=== PATIENT | male | born 1955 | race Caucasian/White ===

== ENCOUNTER → 2016-09-10 | Outpatient (CLI) | payer OTHER | END | disposition home or self-care (01) | LOC: CVU 08:41 | PROVIDERS: ATTEND Surgery Vascular Surgery | DX: I65.23 Occlusion and stenosis of bilateral carotid arteries (principal); I10 Essential (primary) hypertension | CPT/HCPCS: 93880 ==

== ENCOUNTER → 2016-09-17 | Outpatient (CLI) | payer OTHER ==
[~2016-09-17] MED LIST: REGADENOSON 0.4 MG/5 ML SYRINGE ONE
== END | disposition home or self-care (01) ==
LOC: CFH 07:04
PROVIDERS: ATTEND Family Medicine
DX: Z01.810 Encounter for preprocedural cardiovascular examination (principal); I08.3 Combined rheumatic disorders of mitral, aortic and tricuspid valves; R94.31 Abnormal electrocardiogram [ECG] [EKG]
CPT/HCPCS: 78452; 93017; 93306; A9502; J2785

== ENCOUNTER → 2017-02-22 | Outpatient (CLI) | payer OTHER ==
[~2017-02-22] MED LIST changes: +AMLO5TAB2 PO; +ASCO500C2 PO; +ATOR10TA9 PO; +BENA40TA2 PO; +MAGN84TA6 PO; +OMEP20TA62 PO; +POTA99TA2 PO; -REGADENOSON 0.4 MG/5 ML SYRINGE ONE
[2017-02-22 16:10] LABS: HEMATOCRIT 51.3 % (39.2-51.8); HEMOGLOBIN 17.4 g/dL (13.7-18.0); WHITE BLOOD COUNT 8.4 x10^3/uL (3.4-10)
[2017-02-22 16:21] LABS: ASPARTATE AMINO TRANSFERASE 19 U/L (15-37); BLOOD UREA NITROGEN 16 mg/dL (7-18)
== END | disposition home or self-care (01) ==
LOC: STAR 14:46
PROVIDERS: ATTEND Orthopaedic Surgery
DX: Z01.818 Encounter for other preprocedural examination (principal); M17.12 Unilateral primary osteoarthritis, left knee; M81.0 Age-related osteoporosis without current pathological fracture
CPT/HCPCS: 36415; 80053; 81003; 85025; 87081; 93005

== ENCOUNTER 2017-02-28 06:12 | Inpatient (IN) | payer OTHER ==
[~2017-02-28] VITALS: Ht 188 cm; Wt 115.0 kg
[2017-02-28] MEDS ORDERED: LACTATED RINGERS 1,000 ML IV SCH (07:17)
[2017-02-28] MEDS ORDERED: FLU VACC QS2017-18 (36MOS+) UP/PF 0.5 ML IM-VACC ONE (07:30)
[2017-02-28] MEDS ORDERED: MIDAZOLAM 1 MG/ML, 2ML ONE (07:43)
[2017-02-28] MEDS ORDERED: FENTANYL PF 100 MCG/2ML ONE ×2 (07:44→09:12)
[2017-02-28] MEDS ORDERED: PROPOFOL 10 MG/ML, 20ML ONE ×3 (07:44)
[2017-02-28] MEDS ORDERED: CEFAZOLIN 1,000 MG ONE ×2 (07:44)
[2017-02-28] MEDS ORDERED: ONDANSETRON 2MG/ML, 2ML ONE (07:44)
[2017-02-28] MEDS ORDERED: LABETALOL 5MG/ML, 20ML IV PRN (08:00)
[2017-02-28] MEDS ORDERED: HYDROmorphone 1 MG/ML, 1ML IV PRN ×2 (08:00→11:30)
[2017-02-28] MEDS ORDERED: ACETAMINOPHEN 325 MG TABLET PO PRN (08:00)
[2017-02-28] MEDS ORDERED: hydrALAzine 20 MG/ML, 1ML IV PRN (08:00)
[2017-02-28] MEDS ORDERED: EPHEDRINE 50 MG/ML, 1ML IVPush PRN (08:00)
[2017-02-28] MEDS ORDERED: FENTANYL PF 100 MCG/2ML IV PRN (08:00)
[2017-02-28] MEDS ORDERED: TRANEXAMIC ACID 100 MG/ML, 10ML ONE (08:00)
[2017-02-28] MEDS ORDERED: ALBUTEROL SULFATE 2.5 MG/3 ML NPPB PRN (08:00)
[2017-02-28] MEDS ORDERED: PROMETHAZINE 25 MG/ML, 1ML IV PRN (08:00)
[2017-02-28] MEDS ORDERED: MEPERIDINE/PF 25MG/0.5ML IVPush PRN (08:00)
[2017-02-28] MEDS ORDERED: ONDANSETRON 2MG/ML, 2ML IVPush PRN (08:00)
[2017-02-28] MEDS ORDERED: METOPROLOL 1 MG/ML, 5ML IV PRN (08:00)
[2017-02-28] MEDS ORDERED: KETOROLAC 60 MG/2 ML ONE (08:00)
[2017-02-28] MEDS ORDERED: OXYcodone 5 MG/5 ML ORAL.SOL UDC PO PRN (08:00)
[2017-02-28] MEDS ORDERED: ROPIvacaine/PF 0.2%, 20 ML ONE (08:01)
[2017-02-28] MEDS ORDERED: EPINEPHRINE 1 MG/ML, 1ML ONE (08:01)
[2017-02-28] MEDS ORDERED: SODIUM CHLORIDE 0.9% 50 ML ONE (08:01)
[2017-02-28] MEDS ORDERED: ACETAMINOPHEN 325 MG TABLET ONE (10:58)
[2017-02-28] MEDS ORDERED: OXYcodone 5 MG/5 ML ORAL.SOL UDC ONE (10:58)
[2017-02-28] MEDS ORDERED: ACETAMINOPHEN 650 MG/20.3 ML UDC ONE (10:59)
[2017-02-28] MEDS ORDERED: DIPHENHYDRAMINE 50 MG CAPSULE PO PRN (11:30)
[2017-02-28] MEDS: HYDROcodone/APAP 10/325 MG TABLET PO SCH ×3 (11:30→21:15)
[2017-02-28] MEDS ORDERED: PROMETHAZINE 12.5 MG SUPP PR PRN (11:30)
[2017-02-28] MEDS ORDERED: HYDROcodone/APAP 10/325 MG TABLET PO PRN (11:30)
[2017-02-28] MEDS ORDERED: ONDANSETRON 4 MG TABLET PO PRN (11:30)
[2017-02-28] MEDS ORDERED: BISACODYL 10 MG SUPP PR PRN (11:30)
[2017-02-28] MEDS ORDERED: DIAZEPAM 5 MG TABLET PO PRN (11:30)
[2017-02-28] MEDS ORDERED: MAGNESIUM HYDROXIDE 8%, 30ML UDC PO PRN (11:30)
[2017-02-28] MEDS ORDERED: ONDANSETRON 2MG/ML, 2ML IV PRN (11:30)
[2017-02-28] MEDS ORDERED: ZOLPIDEM 5MG TABLET PO PRN (11:30)
[2017-02-28] MEDS ORDERED: SENNA/DOCUSATE TABLET PO PRN (11:30)
[2017-02-28] MEDS ORDERED: ALUMINUM/MAG/SIMETHICONE 30 ML UDC PO PRN (11:30)
[2017-02-28] MEDS ORDERED: PROMETHAZINE 25 MG/ML, 1ML IM PRN (11:30)
[2017-02-28] MEDS ORDERED: ACETAMINOPHEN 650 MG/20.3 ML UDC PO PRN (11:30)
[2017-02-28] MEDS ORDERED: TRANEXAMIC ACID 1,500 MG in SODIUM CHLORIDE 0.9% 100 ML IVPB ONE (11:45)
[2017-02-28] MEDS ORDERED: DIPHENHYDRAMINE 50 MG/ML, 1ML ONE (12:23)
[2017-02-28] MEDS ORDERED: DIPHENHYDRAMINE 25 MG CAPSULE PO PRN (13:05)
[2017-02-28 15:35] VITALS: BP 132/76
[2017-02-28] MEDS: CEFAZOLIN PMX 2GM/50ML 50 ML IVPB SCH (17:04)
[2017-02-28] MEDS: ASPIRIN 81 MG TABLET EC PO SCH (17:05)
[2017-02-28] MEDS: D5%-0.45% NACL 1,000 ML IV SCH ×2 (17:05→23:40)
[2017-02-28 19:20] VITALS: BP 116/65
[2017-02-28] MEDS ORDERED: ATORVASTATIN 10 MG TABLET PO SCH (21:00)
[2017-02-28] MEDS: AMLODIPINE 5 MG TABLET PO SCH (21:15)
[2017-02-28] MEDS: DOCUSATE 100 MG CAPSULE PO SCH (21:15)
[2017-02-28 23:39] VITALS: BP 121/72
[2017-03-01] MEDS: CEFAZOLIN PMX 2GM/50ML 50 ML IVPB SCH (01:03)
[2017-03-01] MEDS: HYDROcodone/APAP 10/325 MG TABLET PO SCH ×3 (01:07→03:11)
[2017-03-01 04:13] VITALS: BP 138/79
[2017-03-01 05:14] LABS: HEMOGLOBIN 14.5 g/dL (13.7-18.0)
[2017-03-01] MEDS ORDERED: DEXAMETHASONE 4 MG/ML, 1ML IVPush SCH (06:00)
[2017-03-01] MEDS: ASPIRIN 81 MG TABLET EC PO SCH (06:06)
[2017-03-01] MEDS: D5%-0.45% NACL 1,000 ML IV SCH ×2 (06:07→13:00)
[2017-03-01] MEDS: AMLODIPINE 5 MG TABLET PO SCH (08:57)
[2017-03-01] MEDS: DOCUSATE 100 MG CAPSULE PO SCH (08:58)
[2017-03-01] MEDS ORDERED: MULTIVITAMINS/MINERALS TABLET PO SCH (09:00)
[2017-03-01] MEDS ORDERED: BENAZEPRIL 20 MG TABLET PO SCH (09:00)
[2017-03-01] MEDS ORDERED: OMEPRAZOLE 20 MG CAPSULE.DR PO SCH (09:00)
[2017-03-01] MEDS ORDERED: KETOROLAC 30 MG/1 ML IV SCH (11:30)
[2017-03-01 11:44] VITALS: BP 148/80
[2017-03-01] MEDS ORDERED: TAMSULOSIN 0.4 MG CAP.ER.24H PO SCH (11:45)
[2017-03-01 14:00] VITALS: BP 159/83
[2017-03-01] MEDS ORDERED: HYDR-3307 PO (15:53)
== END 2017-03-01 16:27 | disposition home or self-care (01) | DRG 470 ==
LOC: ORIP 06:12 → 4NOR 12:38 → DCLOUNGE 03-01 15:45
PROVIDERS: ADMIT Orthopaedic Surgery; ATTEND Orthopaedic Surgery
PROC: 0SRD0J9 Replacement of Left Knee Joint with Synthetic Substitute, Cemented, Open Approach (ICD-10-PCS; principal; 2017-02-28 09:15)
DX: M17.12 Unilateral primary osteoarthritis, left knee (principal); E78.5 Hyperlipidemia, unspecified; I10 Essential (primary) hypertension; K21.9 Gastro-esophageal reflux disease without esophagitis
CPT/HCPCS: 36415; 85014; 85018; 90686; C1713; J0171; J0690; J1100; J1170; J1885; J2250; J2405; J2704; J2795; J3010; C1776; J7120; Q0163

== ENCOUNTER 2017-05-13 06:06 | Day surgery (SDC) | payer OTHER ==
[~2017-05-13] VITALS: Ht 188 cm; Wt 100.0 kg
[~2017-05-13 06:06] MED LIST changes: +HYDR-3307 PO
[2017-05-13] MEDS ORDERED: IBUP-1221 PO (06:59)
[2017-05-13] MEDS ORDERED: CARB1TAB PO (07:02)
[2017-05-13] MEDS ORDERED: LACTATED RINGERS 1,000 ML IV SCH (07:10)
[2017-05-13 07:13] VITALS: BP 153/90
[2017-05-13] MEDS ORDERED: EPINEPHRINE 1 MG/ML, 1ML ONE (07:40)
[2017-05-13] MEDS ORDERED: ROPIvacaine/PF 0.2%, 20 ML ONE (07:40)
[2017-05-13] MEDS ORDERED: SODIUM CHLORIDE 0.9% 100 ML ONE (07:40)
[2017-05-13] MEDS ORDERED: KETOROLAC 60 MG/2 ML ONE (07:40)
[2017-05-13] MEDS ORDERED: MIDAZOLAM 1 MG/ML, 2ML ONE ×2 (07:55)
[2017-05-13] MEDS ORDERED: FENTANYL PF 100 MCG/2ML ONE ×3 (07:55→08:40)
[2017-05-13] MEDS ORDERED: PROMETHAZINE 25 MG/ML, 1ML IM PRN (08:00)
[2017-05-13] MEDS ORDERED: HYDROcodone/APAP 5/325 TABLET PO PRN (08:00)
[2017-05-13] MEDS ORDERED: DIAZEPAM 5 MG TABLET PO PRN (08:00)
[2017-05-13] MEDS ORDERED: ONDANSETRON 2MG/ML, 2ML IVPush PRN ×2 (08:00→08:30)
[2017-05-13] MEDS ORDERED: ACETAMINOPHEN 650 MG/20.3 ML UDC ONE (08:26)
[2017-05-13] MEDS ORDERED: KETOROLAC 30 MG/1 ML ONE (08:27)
[2017-05-13] MEDS ORDERED: hydrALAzine 20 MG/ML, 1ML IV PRN (08:30)
[2017-05-13] MEDS ORDERED: KETOROLAC 30 MG/1 ML IM PRN (08:30)
[2017-05-13] MEDS ORDERED: ACETAMINOPHEN 325 MG TABLET PO PRN (08:30)
[2017-05-13] MEDS: FENTANYL PF 100 MCG/2ML IV PRN ×2 (08:47→08:53)
[2017-05-13] MEDS ORDERED: KETOROLAC 30 MG/1 ML IV PRN (09:00)
[2017-05-13] MEDS ORDERED: LABETALOL 5MG/ML, 20ML ONE (09:05)
[2017-05-13] MEDS: LABETALOL 5MG/ML, 20ML IV PRN ×2 (09:06→09:19)
[2017-05-13] MEDS ORDERED: ROPIvacaine/PF 0.2%, 100ML 550 ML (check volume) INJ ONE (09:30)
[2017-05-13] MEDS ORDERED: FENTANYL PF 250 MCG/5ML ONE (10:04)
[2017-05-13] MEDS ORDERED: SUCCINYLCHOLINE 20 MG/ML, 10ML ONE (11:15)
[2017-05-13] MEDS ORDERED: GLYCOPYRROLATE 0.2MG/1ML, 5ML ONE (11:15)
[2017-05-13] MEDS ORDERED: DEXAMETHASONE 4 MG/ML, 1ML ONE (11:15)
[2017-05-13] MEDS ORDERED: NEOSTIGMINE 1 MG/ML, 10ML ONE (11:15)
[2017-05-13] MEDS ORDERED: CEFAZOLIN 1,000 MG ONE (11:15)
[2017-05-13] MEDS ORDERED: ROCURONIUM 10 MG/ML,10ML ONE (11:15)
[2017-05-13] MEDS ORDERED: PROPOFOL 10 MG/ML, 20ML ONE (11:15)
[2017-05-13] MEDS ORDERED: ONDANSETRON 2MG/ML, 2ML ONE (11:15)
== END 2017-05-13 11:00 ==
LOC: OR 06:06 → OUT 11:00
PROVIDERS: ATTEND Orthopaedic Surgery
DX: M25.662 Stiffness of left knee, not elsewhere classified (principal); Z96.652 Presence of left artificial knee joint; I10 Essential (primary) hypertension; K21.9 Gastro-esophageal reflux disease without esophagitis; E78.5 Hyperlipidemia, unspecified
CPT/HCPCS: 27570; J0171; J0690; J1100; J1885; J2405; J2704; J2710; J2795; J3010; J7120; J2250; J3490; J0330

== ENCOUNTER → 2017-08-09 | Outpatient (CLI) | payer OTHER ==
[~2017-08-09] MED LIST changes: +CARB1TAB PO; +GADOBUTROL 10 MMOL/10 ML PFS ONE; +IBUP-1221 PO
== END | disposition home or self-care (01) ==
LOC: CFH 09:44
PROVIDERS: ATTEND Psychiatry & Neurology Neurology
DX: G20 Parkinson's disease (principal); G31.89 Other specified degenerative diseases of nervous system
CPT/HCPCS: 70553; 82565; A9585